=== PATIENT | male | born 1975 | race American Indian/Alaskan Native ===

== ENCOUNTER 2020-12-14 20:43 | Emergency (ER) | payer MEDICAID ==
[~2020-12-14 20:43] MED LIST: EPINEPHrine 1 MG/10 ML SYRINGE ONE
--- NOTE | 2020-12-14 21:02 | Emergency Department Report ---
ED CPR HPI - General Chief Complaint: Cardiac Arrest/CPR Stated Complaint: CARDIAC ARREST Time Seen by Provider: 12/14/20 20:55 Source: family, EMS Mode of arrival: Stretcher Limitations: Other - History of Present Illness Initial Comments: 45-year-old male, history of diabetes and CHF, presents to ED in cardiac arrest. EMS reports patient's went to the bathroom and heard patient fall in the other room. When she went in to check on him, she saw that patient had fallen face down out of the chair. Patient was unresponsive. EMS was called. Ap proximately 10-minute downtime prior to EMS arrival. Upon their arrival, patient found to be in asystole. Patient was intubated and ACLS was initiated. Patient received epi x3, sodium bicarb x1. Patient apparently had a recent COVID-19 infection. Had a negative Covid test 1 week ago. EMS reports they have been working patient for approximately 30 to 35 minutes. Patient remains in asystole. MD Complaint: collapsed during rest Place: home Bystander CPR Performed: Yes Downtime Before ACLS Arrival (mins): 10 Initial Findings in the Field: unresponsive, no respirations, no pulse, other rhythm (asystole) ROSC in the Field: No Treatments Prior to Arrival: intubation, epinephrine mgs # (3), sodium bicarbonate (x1) - Related Data Allergies Allergy/AdvReac Type Severity Reaction Status Date / Time Unable to Assess Allergy Unverified 12/14/20 20:57 ED Review of Systems ROS: Stated complaint: CARDIAC ARREST Other details as noted in HPI Comment: Unobtainable due to pts medical conditions ED Physical Exam - General Limitations: Other General appearance: obese - Head Head exam: Present: atraumatic, normocephalic - Eye Pupils: Present: other (fixed bilaterally) - ENT ENT exam: Present: other (ET tube in place) - Neck Neck exam: Present: normal inspection - Respiratory Respiratory exam: Present: other (no spontaneous breaths) - Cardiovascular Cardiovascular Exam: Present: other (no palpable pulse) - GI/Abdominal GI/Abdominal exam: Present: soft. Absent: distended - Extremities Exam Extremities exam: Present: other (IO in right lower leg) - Neurological Exam Neurological exam: Present: other (GCS 3) - Skin Skin exam: Present: warm, dry, intact, normal color ED Medical Decision Making - Medical Decision Making 45-year-old male presents to ED in cardiac arrest. Downtime 35-45 min at the time of ED arrival. Code was run according to ACLS protocol. Please see nurses notes for details. Unfortunately we were unable to achieve ROSC. Time of was called at 20:52. Family notified. Critical care attestation.: If time is entered above; I have spent that time in minutes in the direct care of this critically ill patient, excluding procedure time. ED Disposition Clinical Impression: Cardiac arrest Disposition: DC-20 Is pt being admited?: No Condition: Stable Referrals: PRIMARY CARE, [Primary Care Provider] - 3-5 Days
== END 2020-12-15 01:20 ==
LOC: ED 20:43
DX: I46.9 Cardiac arrest, cause unspecified (principal)
CPT/HCPCS: 92950; 99285; J0171; 82962